=== PATIENT | male | born 1985 | race Caucasian/White ===

== ENCOUNTER 2016-11-13 14:16 | Emergency (ER) | payer OTHER ==
[~2016-11-13] VITALS: Ht 177.8 cm; Wt 72.6 kg
[2016-11-13 14:19] VITALS: BP 134/68
== END 2016-11-13 15:40 ==
LOC: ER 14:20
DX: J45.909 Unspecified asthma, uncomplicated (principal)
CPT/HCPCS: 99283; A4606; Z7610

== ENCOUNTER 2024-11-24 01:39 | Emergency (ER) | payer MEDICAID, OTHER ==
[~2024-11-24] VITALS: Ht 170.2 cm; Wt 63.5 kg
[2024-11-24 01:58] VITALS: O2SAT 95
[2024-11-24] MEDS: IPRATROPIUM NEB FS 0.5 MG/2.5 ML AMPUL.NEB NEB ONE (01:58)
[2024-11-24] MEDS: ALBUTEROL FS 2.5 MG/3 ML VIAL.NEB NEB ONE (01:58)
[2024-11-24] MEDS ORDERED: IPRATROPIUM NEB FS 0.5 MG/2.5 ML AMPUL.NEB ONE (02:01)
[2024-11-24] MEDS ORDERED: ALBUTEROL FS 2.5 MG/3 ML VIAL.NEB ONE (02:01)
[2024-11-24 02:58] VITALS: O2SAT 97
[2024-11-24] MEDS ORDERED: ALBU8.5H8 INH (04:27)
[2024-11-24] MEDS ORDERED: PRED50TA PO (04:27)
[2024-11-24 05:50] VITALS: BP 120/65; TEMP 98; O2SAT 97
== END 2024-11-24 05:51 | disposition home or self-care (01) ==
LOC: ER 01:48
DX: R06.02 Shortness of breath (principal); R05.9 Cough, unspecified; F17.200 Nicotine dependence, unspecified, uncomplicated; J45.909 Unspecified asthma, uncomplicated; Z71.6 Tobacco abuse counseling; Z79.52 Long term (current) use of systemic steroids
CPT/HCPCS: 99285; 71045; 94644; J7512

== ENCOUNTER 2024-11-25 22:43 | Emergency (ER) | payer MEDICAID, OTHER ==
[~2024-11-25] VITALS: Ht 170.2 cm; Wt 74.8 kg
[~2024-11-25 22:43] MED LIST: ALBU8.5H8 INH; PRED50TA PO
[2024-11-25 23:52] VITALS: BP 138/75; TEMP 98
[2024-11-26] MEDS ORDERED: ALBU8.5H8 INH (00:50)
[2024-11-26] MEDS ORDERED: PRED50TA PO (00:50)
[2024-11-26 01:05] VITALS: O2SAT 99
[2024-11-26] MEDS: ALBUTEROL FS 2.5 MG/3 ML VIAL.NEB NEB ONE (01:05)
[2024-11-26] MEDS ORDERED: ALBUTEROL FS 2.5 MG/3 ML VIAL.NEB ONE (01:12)
[2024-11-26 01:20] VITALS: O2SAT 99
== END 2024-11-26 04:48 | disposition home or self-care (01) ==
LOC: ER 22:50
DX: J45.909 Unspecified asthma, uncomplicated (principal); R07.89 Other chest pain; Z59.00 Homelessness unspecified; Z79.52 Long term (current) use of systemic steroids
CPT/HCPCS: 99283; 71045; J7512